=== PATIENT | female | born 1955 | race Caucasian/White ===

== ENCOUNTER 2018-04-24 10:00 | Inpatient (IN) | payer OTHER ==
[~2018-04-24] VITALS: Ht 165.1 cm; Wt 75.1 kg
[2018-04-24 11:16] VITALS: BP 111/66
[2018-04-24 11:17] LABS: BASOPHILS % (AUTO) 0.3 % (0.0-5.0); EOSINOPHILS % (AUTO) 0.6 % (0.0-8.0); HEMATOCRIT 40.7 % (36-48); LYMPHOCYTES % (AUTO) 24.6 % (21.0-51.0); MEAN CORPUSCULAR HGB CONC 31.8 g/dL (32.0-36.0); MEAN CORPUSCULAR VOLUME 75.5 fL (79-99); MONOCYTES % (AUTO) 5.4 % (3.0-13.0); NEUTROPHILS % (AUTO) 69.1 % (40.0-77.0); PLATELET COUNT (AUTO) 145 K/uL (130-400); RED BLOOD CELL COUNT(AUTO) 5.39 MIL/uL (4.00-5.50); RED CELL DISTRIBUTION WIDTH 27.3 % (11.0-15.5); WHITE BLOOD COUNT (AUTO) 8.4 K/uL (4.8-10.8)
[2018-04-24 11:24] LABS: CREATININE 0.8 mg/dL (0.5-1.5); HEMOGLOBIN A1C 5.3 % (4.0-6.0); POTASSIUM 4.9 mmol/L (3.5-5.1)
[2018-04-24] MEDS ORDERED: FOLI1TAB15 PO (12:03)
[2018-04-24] MEDS ORDERED: CALC-190 PO (12:03)
[2018-04-24] MEDS ORDERED: triamcinolone TP (12:03)
[2018-04-24] MEDS ORDERED: TRAZ-187 PO (12:03)
[2018-04-24] MEDS ORDERED: BIOT10005 PO (12:03)
[2018-04-24] MEDS ORDERED: MULT-1258 PO (12:03)
[2018-04-24] MEDS ORDERED: MUPI22O TP (12:03)
[2018-04-24] MEDS ORDERED: TRAM50TA4 PO (12:03)
[2018-04-24] MEDS ORDERED: SIMV20TA6 PO (12:03)
[2018-04-24] MEDS ORDERED: DICL2100G TP (12:03)
[2018-04-24] MEDS ORDERED: METO25TA6 PO (12:03)
[2018-04-24] MEDS ORDERED: LOSA50TA25 PO (12:03)
[2018-04-24 12:10] LABS: INR 0.95 (0.85-1.15); PARTIAL THROMBOPLASTIN TIME 26.6 SEC (26.3-35.5)
[2018-04-24 12:19] LABS: ABG BASE EXCESS -2.1 mmol/L (-2.0-3.0); ABG HCO3 22.8 mmol/L (21.0-28.0); ABG OXYGEN SATURATION 97.1 % (95.0-99.0); ABG PCO2 40 mmHg (32-45)
[2018-04-27] VITALS (17 sets, daily range): BP systolic 108–139; BP diastolic 24–82
[2018-04-27] MEDS ORDERED: SODIUM CHLORIDE 0.9% 1000ML 1,000 ML IV ONE (06:17)
[2018-04-27] MEDS ORDERED: CLINDAMYCIN 900 MG/D5% WATER 50 ML IV ONE (06:34)
[2018-04-27] MEDS ORDERED: LIDOCAINE PF 2% 5ML ABBOJECT ONE (07:58)
[2018-04-27] MEDS ORDERED: FENTANYL CITRATE PF 50 MCG/1 ML 2ML VIAL ONE (07:58)
[2018-04-27] MEDS ORDERED: PROPOFOL 10 MG/ML 20ML VIAL IV ONE (07:58)
[2018-04-27] MEDS ORDERED: ONDANSETRON HCL 4 MG/2 ML VIAL ONE (07:58)
[2018-04-27] MEDS ORDERED: NEOSTIGMINE 5MG/5ML SYR IV ONE ×2 (07:58→14:37)
[2018-04-27] MEDS ORDERED: DEXAMETHASONE SOD PHOSPHATE 10MG/ML 1ML VIAL ONE (07:58)
[2018-04-27] MEDS ORDERED: GLYCOPYRROLATE 1 MG/5 ML SYRINGE ONE ×2 (07:59→14:37)
[2018-04-27] MEDS ORDERED: ROCURONIUM 10MG/1ML SYR 10 MG/ML ML ONE (07:59)
[2018-04-27] MEDS ORDERED: MIDAZOLAM HCL 1 MG/ML 2ML VIAL ONE ×2 (07:59→14:42)
[2018-04-27] MEDS: AMBU PUMP 1 EACH EACH MISC SCH ×2 (08:30→13:26)
[2018-04-27] MEDS ORDERED: ROPIVACAINE 0.2% 2MG/ML 100ML VIAL IJ ONE (10:00)
[2018-04-27] MEDS ORDERED: FENTANYL CITRATE PF 50 MCG/1 ML 5ML AMP IV ONE (12:32)
[2018-04-27] MEDS ORDERED: EPHEDRINE SULFATE 50 MG/ML AMPULE ONE (12:37)
[2018-04-27] MEDS ORDERED: ONDANSETRON HCL 4 MG/2 ML VIAL IVP PRN (13:15)
[2018-04-27] MEDS ORDERED: MAGNESIUM HYDROXIDE 30 ML/UDCUP PO PRN (13:15)
[2018-04-27] MEDS ORDERED: BACITRACIN 50,000 UNIT VIAL ONE (13:45)
[2018-04-27] MEDS ORDERED: MEPERIDINE-PF 25 MG/ML SYG ONE (15:23)
[2018-04-27 15:25] LABS: BASOPHILS % (AUTO) 0.3 % (0.0-5.0); EOSINOPHILS % (AUTO) 0.4 % (0.0-8.0); HEMATOCRIT 35.3 % (36-48); LYMPHOCYTES % (AUTO) 15.9 % (21.0-51.0); MEAN CORPUSCULAR HEMOGLOBIN 24.5 pg (27.0-33.0); MEAN CORPUSCULAR HGB CONC 32.2 g/dL (32.0-36.0); MEAN CORPUSCULAR VOLUME 76.2 fL (79-99); MONOCYTES % (AUTO) 3.6 % (3.0-13.0); NEUTROPHILS % (AUTO) 79.8 % (40.0-77.0); PLATELET COUNT (AUTO) 143 K/uL (130-400); RED BLOOD CELL COUNT(AUTO) 4.63 MIL/uL (4.00-5.50); WHITE BLOOD COUNT (AUTO) 11.5 K/uL (4.8-10.8)
[2018-04-27 15:33] LABS: CREATININE 0.8 mg/dL (0.5-1.5); POTASSIUM 3.8 mmol/L (3.5-5.1)
[2018-04-27] MEDS ORDERED: MEPERIDINE-PF 25 MG/ML SYG IVP PRN (18:30)
[2018-04-27] MEDS: SIMVASTATIN 20 MG TABLET PO SCH (19:54)
[2018-04-27] MEDS: CLINDAMYCIN 600 MG/D5% WATER 50 ML IV SCH ×2 (19:54→22:00)
[2018-04-27] MEDS: TRAMADOL HCL 50 MG TABLET PO PRN (19:54)
[2018-04-28] VITALS (7 sets, daily range): BP systolic 106–146; BP diastolic 63–79
[2018-04-28] MEDS: TRAMADOL HCL 50 MG TABLET PO PRN ×4 (03:00→19:36)
[2018-04-28 04:51] LABS: BASOPHILS % (AUTO) 0.2 % (0.0-5.0); HEMATOCRIT 37.8 % (36-48); MEAN CORPUSCULAR HEMOGLOBIN 24.8 pg (27.0-33.0); MEAN CORPUSCULAR HGB CONC 32.5 g/dL (32.0-36.0); MEAN CORPUSCULAR VOLUME 76.5 fL (79-99); MONOCYTES % (AUTO) 8.5 % (3.0-13.0); NEUTROPHILS % (AUTO) 78.3 % (40.0-77.0); PLATELET COUNT (AUTO) 141 K/uL (130-400); RED BLOOD CELL COUNT(AUTO) 4.94 MIL/uL (4.00-5.50); RED CELL DISTRIBUTION WIDTH 27.8 % (11.0-15.5); WHITE BLOOD COUNT (AUTO) 10.5 K/uL (4.8-10.8)
[2018-04-28 05:00] LABS: CREATININE 0.7 mg/dL (0.5-1.5); POTASSIUM 4.7 mmol/L (3.5-5.1)
[2018-04-28] MEDS: CLINDAMYCIN 600 MG/D5% WATER 50 ML IV SCH ×2 (06:07→14:07)
[2018-04-28] MEDS: CALCIUM 600 + VITAMIN D 400 TABLET PO SCH (08:46)
[2018-04-28] MEDS: METOPROLOL TARTRATE 25 MG TAB PO SCH (08:47)
[2018-04-28] MEDS: MULTIVITAMIN WITH MINERALS TABLET PO SCH (08:47)
[2018-04-28] MEDS: PANTOPRAZOLE SODIUM 40 MG TABLET.DR PO SCH (08:47)
[2018-04-28] MEDS: LOSARTAN 50 MG TABLET PO SCH (08:47)
[2018-04-28] MEDS: FOLIC ACID 1 MG TABLET PO SCH (08:47)
[2018-04-28] MEDS: BIOTIN 10000 MCG PO SCH (10:17)
[2018-04-28] MEDS: AMBU PUMP 1 EACH EACH MISC SCH (10:18)
[2018-04-28] MEDS: SIMVASTATIN 20 MG TABLET PO SCH (20:35)
[2018-04-29] MEDS: TRAMADOL HCL 50 MG TABLET PO PRN ×3 (02:11→21:07)
[2018-04-29 04:00] VITALS: BP 137/77
[2018-04-29 07:00] VITALS: BP 123/75
[2018-04-29] MEDS: CALCIUM 600 + VITAMIN D 400 TABLET PO SCH (08:03)
[2018-04-29] MEDS: MULTIVITAMIN WITH MINERALS TABLET PO SCH (08:05)
[2018-04-29] MEDS: PANTOPRAZOLE SODIUM 40 MG TABLET.DR PO SCH (08:05)
[2018-04-29] MEDS: LOSARTAN 50 MG TABLET PO SCH (08:05)
[2018-04-29] MEDS: FOLIC ACID 1 MG TABLET PO SCH (08:05)
[2018-04-29] MEDS: METOPROLOL TARTRATE 25 MG TAB PO SCH (08:05)
[2018-04-29] MEDS: BIOTIN 10000 MCG PO SCH (09:00)
[2018-04-29 11:00] VITALS: BP 127/74
[2018-04-29 16:00] VITALS: BP 121/66
[2018-04-29 19:31] VITALS: BP 124/73
[2018-04-29] MEDS: SIMVASTATIN 20 MG TABLET PO SCH (21:08)
[2018-04-29 23:51] VITALS: BP 129/73
[2018-04-30] MEDS: TRAMADOL HCL 50 MG TABLET PO PRN ×2 (03:18→18:26)
[2018-04-30 03:39] VITALS: BP 128/71
[2018-04-30 07:29] VITALS: BP 114/65
[2018-04-30] MEDS: BIOTIN 10000 MCG PO SCH (09:00)
[2018-04-30] MEDS: CALCIUM 600 + VITAMIN D 400 TABLET PO SCH (09:35)
[2018-04-30] MEDS: MULTIVITAMIN WITH MINERALS TABLET PO SCH (09:35)
[2018-04-30] MEDS: LOSARTAN 50 MG TABLET PO SCH (09:35)
[2018-04-30] MEDS: METOPROLOL TARTRATE 25 MG TAB PO SCH (09:35)
[2018-04-30] MEDS: PANTOPRAZOLE SODIUM 40 MG TABLET.DR PO SCH (09:35)
[2018-04-30] MEDS: FOLIC ACID 1 MG TABLET PO SCH (09:35)
[2018-04-30 10:51] VITALS: BP 121/71
[2018-04-30 16:03] VITALS: BP 104/61
[2018-04-30 20:23] VITALS: BP 117/68
[2018-04-30] MEDS: SIMVASTATIN 20 MG TABLET PO SCH (20:45)
[2018-04-30] MEDS: ACETAMINOPHEN 325 MG TAB PO PRN (20:52)
[2018-04-30] MEDS: IPRATROPIUM/ALBUTEROL SULFATE 3 ML SOLUTION IH PRN (20:55)
[2018-04-30 23:45] VITALS: BP 127/82
[2018-05-01] VITALS (18 sets, daily range): BP systolic 90–158; BP diastolic 51–85
[2018-05-01] MEDS: IPRATROPIUM/ALBUTEROL SULFATE 3 ML SOLUTION IH PRN ×2 (02:22→08:10)
[2018-05-01] MEDS: ACETAMINOPHEN 325 MG TAB PO PRN (04:04)
[2018-05-01] MEDS: BIOTIN 10000 MCG PO SCH (09:00)
[2018-05-01] MEDS: METOPROLOL TARTRATE 25 MG TAB PO SCH (09:30)
[2018-05-01] MEDS: PANTOPRAZOLE SODIUM 40 MG TABLET.DR PO SCH (09:30)
[2018-05-01] MEDS: MULTIVITAMIN WITH MINERALS TABLET PO SCH (09:30)
[2018-05-01] MEDS: CALCIUM 600 + VITAMIN D 400 TABLET PO SCH (09:30)
[2018-05-01] MEDS: LOSARTAN 50 MG TABLET PO SCH (09:30)
[2018-05-01] MEDS: FOLIC ACID 1 MG TABLET PO SCH (09:30)
[2018-05-01] MEDS: TRAMADOL HCL 50 MG TABLET PO PRN ×2 (09:42→19:50)
[2018-05-01] MEDS: ACETYLCYSTEINE 10% 100MG/ML 4ML VIAL IH SCH ×3 (11:26→23:12)
[2018-05-01] MEDS: IPRATROPIUM/ALBUTEROL SULFATE 3 ML SOLUTION IH SCH ×3 (11:26→23:12)
[2018-05-01] MEDS ORDERED: IPRATROPIUM/ALBUTEROL SULFATE 3 ML SOLUTION IH SCH (12:00)
[2018-05-01] MEDS ORDERED: ACETYLCYSTEINE 10% 100MG/ML 4ML VIAL IH SCH (12:00)
[2018-05-01] MEDS ORDERED: PROPOFOL 10 MG/ML 20ML VIAL IV ONE (13:06)
[2018-05-01] MEDS ORDERED: GLYCOPYRROLATE 0.2 MG/ML 5 ML VIAL ONE (13:06)
[2018-05-01] MEDS ORDERED: SUCCINYLCHOLINE CHLORIDE 20 MG/ML 10 ML VIAL ONE (13:16)
[2018-05-01 19:11] LABS: SPECIMENTYPE,BODY FLUID LAVAGE
[2018-05-01 19:12] LABS: APPEARANCE BODY FLUID SLIGHTLY CLOUDY (CLEAR); COLOR,BODY FLUID ORANGE (LT YELLOW)
[2018-05-01 19:13] LABS: BODY FLUID WBC 396 /cu. mm.; TOTAL VOLUME,BODY FLUID 13 mL
[2018-05-01 19:14] LABS: BODY FLUID RBC 190 /cu. mm.
[2018-05-01] MEDS: DOXYCYCLINE HYCLATE 100 MG TABLET PO SCH (19:49)
[2018-05-01] MEDS: SIMVASTATIN 20 MG TABLET PO SCH (19:49)
[2018-05-01 20:09] LABS: BF EOSINOPHIL 3 %; BF LYMPHOCYTE 4 %
[2018-05-02] VITALS (7 sets, daily range): BP systolic 116–157; BP diastolic 69–82
[2018-05-02 03:50] LABS: HEMATOCRIT 33.6 % (36-48); MEAN CORPUSCULAR HEMOGLOBIN 24.8 pg (27.0-33.0); MEAN CORPUSCULAR HGB CONC 32.8 g/dL (32.0-36.0); MEAN CORPUSCULAR VOLUME 75.6 fL (79-99); PLATELET COUNT (AUTO) 205 K/uL (130-400); RED BLOOD CELL COUNT(AUTO) 4.45 MIL/uL (4.00-5.50); RED CELL DISTRIBUTION WIDTH 27.7 % (11.0-15.5)
[2018-05-02 04:11] LABS: CREATININE 0.6 mg/dL (0.5-1.5); PHOSPHORUS 3.7 mg/dL (2.5-4.9); POTASSIUM 4.6 mmol/L (3.5-5.1)
[2018-05-02] MEDS: IPRATROPIUM/ALBUTEROL SULFATE 3 ML SOLUTION IH SCH ×4 (06:35→23:23)
[2018-05-02] MEDS: ACETYLCYSTEINE 10% 100MG/ML 4ML VIAL IH SCH ×4 (06:36→23:23)
[2018-05-02] MEDS: BIOTIN 10000 MCG PO SCH (09:00)
[2018-05-02] MEDS: CALCIUM 600 + VITAMIN D 400 TABLET PO SCH (09:00)
[2018-05-02] MEDS: MULTIVITAMIN WITH MINERALS TABLET PO SCH (09:22)
[2018-05-02] MEDS: PANTOPRAZOLE SODIUM 40 MG TABLET.DR PO SCH (09:22)
[2018-05-02] MEDS: FOLIC ACID 1 MG TABLET PO SCH (09:22)
[2018-05-02] MEDS: METOPROLOL TARTRATE 25 MG TAB PO SCH (09:23)
[2018-05-02] MEDS: LOSARTAN 50 MG TABLET PO SCH (09:23)
[2018-05-02] MEDS: TRAMADOL HCL 50 MG TABLET PO PRN ×4 (09:23→22:15)
[2018-05-02] MEDS: DOXYCYCLINE HYCLATE 100 MG TABLET PO SCH ×2 (09:23→21:01)
[2018-05-02] MEDS ORDERED: CALC1TAB2 PO (09:29)
[2018-05-02] MEDS ORDERED: CALCIUM 600 + VITAMIN D 400 TABLET PO SCH (09:30)
[2018-05-02] MEDS: SIMVASTATIN 20 MG TABLET PO SCH (21:01)
[2018-05-03 03:38] VITALS: BP 132/78
[2018-05-03] MEDS: ACETYLCYSTEINE 10% 100MG/ML 4ML VIAL IH SCH ×2 (06:11→11:07)
[2018-05-03] MEDS: IPRATROPIUM/ALBUTEROL SULFATE 3 ML SOLUTION IH SCH ×2 (06:11→11:07)
[2018-05-03 07:28] VITALS: BP 126/76
[2018-05-03] MEDS ORDERED: DOXY100T2 PO (07:39)
[2018-05-03] MEDS: FOLIC ACID 1 MG TABLET PO SCH (08:23)
[2018-05-03] MEDS: PANTOPRAZOLE SODIUM 40 MG TABLET.DR PO SCH (08:23)
[2018-05-03] MEDS: CALCIUM 600 + VITAMIN D 400 TABLET PO SCH (08:23)
[2018-05-03] MEDS: DOXYCYCLINE HYCLATE 100 MG TABLET PO SCH (08:23)
[2018-05-03] MEDS: LOSARTAN 50 MG TABLET PO SCH (08:24)
[2018-05-03] MEDS: METOPROLOL TARTRATE 25 MG TAB PO SCH (08:24)
[2018-05-03] MEDS: BIOTIN 10000 MCG PO SCH (08:24)
[2018-05-03] MEDS: MULTIVITAMIN WITH MINERALS TABLET PO SCH (08:24)
[2018-05-03] MEDS: TRAMADOL HCL 50 MG TABLET PO PRN (08:24)
[2018-05-03 11:10] VITALS: BP 112/78
== END 2018-05-03 12:16 | disposition home or self-care (01) | DRG 120 ==
LOC: EDSTATUS 10:00 → DAHIP 04-27 05:39 → 2AH 04-27 16:29
PROVIDERS: ADMIT Thoracic Surgery (Cardiothoracic Vascular Surgery); ATTEND Thoracic Surgery (Cardiothoracic Vascular Surgery)
PROC: 0BTC0ZZ Resection of Right Upper Lung Lobe, Open Approach (ICD-10-PCS; principal; 2018-04-27 07:30)
PROC: 0B968ZZ Drainage of Right Lower Lobe Bronchus, Via Natural or Artificial Opening Endoscopic (ICD-10-PCS; 2018-05-01)
PROC: 0BC38ZZ Extirpation of Matter from Right Main Bronchus, Via Natural or Artificial Opening Endoscopic (ICD-10-PCS; 2018-05-01)
DX: C34.11 Malignant neoplasm of upper lobe, right bronchus or lung (principal); T17.890A Other foreign object in other parts of respiratory tract causing asphyxiation, initial encounter; J44.9 Chronic obstructive pulmonary disease, unspecified; E78.5 Hyperlipidemia, unspecified; I10 Essential (primary) hypertension; J98.11 Atelectasis; M19.90 Unspecified osteoarthritis, unspecified site; F32.9 Major depressive disorder, single episode, unspecified; F41.9 Anxiety disorder, unspecified; X58.XXXA Exposure to other specified factors, initial encounter; Y93.89 Activity, other specified; Y92.89 Other specified places as the place of occurrence of the external cause; Y99.8 Other external cause status; Z88.0 Allergy status to penicillin; Z91.040 Latex allergy status
CPT/HCPCS: 36415; 36600; 71045; 71046; 80048; 82803; 83036; 83735; 84100; 85025; 85027; 85610; 85730; 86850; 86900; 86901; 86922; 87071; 87077; 87101; 87116; 87186; 87205; 87206; 88104; 88305; 88309; 88312; 89051; 93005; 94010; 94640; 94664; 94667; 94668; 97039; A4344; A7048; J0330; J1100; J2001; J2175; J2250; J2405; J2704; J2710; J2795; J3010; J3490; J7030; J7608